=== PATIENT | female | born 1970 | race Hispanic/Latino ===

== ENCOUNTER 2018-12-25 16:46 | Emergency (ER) | payer MEDICARE ==
[2018-12-25] MEDS ORDERED: ATROVENT IH ONE ×2 (17:18→17:22)
[2018-12-25] MEDS ORDERED: PROVENTIL IH ONE ×2 (17:18→17:22)
[2018-12-25] MEDS ORDERED: SOLU-Medrol IV ONE (17:27)
[2018-12-25] MEDS ORDERED: MAGNESIUM SULFATE 2GM/50ML 2 GM/50 ML BAG IV ONE ×2 (17:27→17:29)
[2018-12-25] MEDS ORDERED: SOLU-Medrol ONE (17:29)
--- NOTE | 2018-12-25 17:31 | Emergency Department Report ---
ED Asthma HPI - General Chief Complaint: Dyspnea/Respdistress Stated Complaint: MICHAEL Time Seen by Provider: 12/25/18 17:24 Source: EMS Mode of arrival: Stretcher Limitations: No Limitations - History of Present Illness Initial Comments: Patient is 48 years old female with history of asthma and diabetes. Patient presented to the ER complaining of shortness of breath and wheezing since yesterday. Patient stated that she was taking 5 mg of prednisone daily that are doctor increased To 10 mg daily now. Patient denied any chest pain, fever or chills. No nausea or vomiting. MD Complaint: "asthma attack", shortness of breath, wheezing - Related Data Allergies Allergy/AdvReac Type Severity Reaction Status Date / Time No Known Allergies Allergy Unverified 12/25/18 17:17 ED Review of Systems ROS: Stated complaint: MICHAEL Other details as noted in HPI Comment: All other systems reviewed and negative Constitutional: denies: chills, fever Respiratory: cough, shortness of breath, SOB with exertion, SOB at rest, wheezing. denies: orthopnea Cardiovascular: denies: chest pain, palpitations Gastrointestinal: denies: abdominal pain, nausea, vomiting, diarrhea, constipation, hematemesis, melena, hematochezia Musculoskeletal: denies: back pain Neurological: denies: headache, weakness ED Past Medical Hx - Past Medical History Hx Asthma: Yes Hx Dementia: Yes ED Physical Exam - General Limitations: No Limitations General appearance: alert, in no apparent distress - Head Head exam: Present: atraumatic, normocephalic, normal inspection - Eye Eye exam: Present: normal appearance, PERRL - ENT ENT exam: Present: normal exam, normal orophraynx, mucous membranes moist - Neck Neck exam: Present: normal inspection, full ROM. Absent: tenderness, meningismus, lymphadenopathy, thyromegaly - Respiratory Respiratory exam: Present: respiratory distress, wheezes, rhonchi, decreased breath sounds, prolonged expiratory. Absent: rales, stridor, accessory muscle use - Cardiovascular Cardiovascular Exam: Present: regular rate, normal rhythm, normal heart sounds - GI/Abdominal GI/Abdominal exam: Present: soft, normal bowel sounds. Absent: distended, tenderness, guarding, rebound, rigid, organomegaly, mass, bruit, pulsatile mass, hernia - Extremities Exam Extremities exam: Present: normal inspection, full ROM, normal capillary refill. Absent: tenderness, pedal edema, joint swelling, calf tenderness - Back Exam Back exam: Present: normal inspection, full ROM. Absent: CVA tenderness (R), CVA tenderness (L) - Neurological Exam Neurological exam: Present: alert, oriented X3, CN II-XII intact, normal gait, reflexes normal - Psychiatric Psychiatric exam: Present: normal mood - Skin Skin exam: Present: warm, intact, normal color ED Course Vital Signs 12/25/18 12/25/18 12/25/18 17:05 17:15 17:22 Temperature 98.4 F Pulse Rate 85 88 Respiratory 22 23 Rate Blood Pressure 129/93 132/83 Blood Pressure 129/93 [Left] O2 Sat by Pulse 94 94 95 Oximetry 12/25/18 12/25/18 12/25/18 17:24 17:30 17:38 Temperature 98.4 F Pulse Rate 87 88 Respiratory 23 22 20 Rate Blood Pressure 125/80 129/93 Blood Pressure [Left] O2 Sat by Pulse 97 94 Oximetry 12/25/18 19:10 Temperature 98.2 F Pulse Rate 104 H Respiratory 30 H Rate Blood Pressure Blood Pressure 111/65 [Left] O2 Sat by Pulse 100 Oximetry ED Medical Decision Making - Lab Data Result diagrams: 12/25/18 17:31 12/25/18 17:31 - Radiology Data Radiology results: report reviewed - Medical Decision Making Patient is 48 years old female with history of asthma and diabetes. Patient pre sented to the ER complaining of shortness of breath and wheezing since yesterday. Patient stated that she was taking 5 mg of prednisone daily that are doctor increased To 10 mg daily now. Patient denied any chest pain, fever or chills. No nausea or vomiting. Patient received albuterol, Atrovent, solu- Medrol and magnesium sulfate. Patient stated that she is feeling much better. Labs reviewed and is unremarkable. Chest x-ray is negative for acute finding. 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 Critical care attestation.: If time is entered above; I have spent that time in minutes in the direct care of this critically ill patient, excluding procedure time. ED Disposition Clinical Impression: Asthma exacerbation Disposition: DC-01 TO HOME OR SELFCARE Is pt being admited?: No Condition: Stable Instructions: Asthma (ED) Referrals: JUAN MARTIN MD [Primary Care Provider] - 3-5 Days
[2018-12-25 17:55] LABS: Basophils % (Auto) 0.5 % (0.0-1.8); Eosinophils # (Auto) 0.2 K/mm3 (0.0-0.4); Eosinophils % (Auto) 2.1 % (0.0-4.3); Hematocrit 36.9 % (30.3-42.9); Hemoglobin 12.5 gm/dl (10.1-14.3); Lymphocytes # (Auto) 1.1 K/mm3 (1.2-5.4); Lymphocytes % (Auto) 15.2 % (13.4-35.0); Mean Corpuscular HGB Conc 34 % (30-34); Mean Corpuscular Volume 92 fl (79-97); Monocytes # (Auto) 0.5 K/mm3 (0.0-0.8); Monocytes % (Auto) 6.4 % (0.0-7.3); Platelet Count 320 K/mm3 (140-440); Red Blood Count 3.99 M/mm3 (3.65-5.03); Red Cell Distribution Width 13.5 % (13.2-15.2)
[2018-12-25 18:14] LABS: Alanine Aminotransferase 12 units/L (7-56); BUN/Creatinine Ratio 17; Blood Urea Nitrogen 10 mg/dL (7-17); Calcium 8.9 mg/dL (8.4-10.2); Hemolysis Index 26
--- NOTE | 2018-12-25 18:24 | XRay Report ---
CHEST 1 VIEW INDICATION / CLINICAL INFORMATION: Dyspnea COMPARISON: None available. FINDINGS: SUPPORT DEVICES: None. HEART / MEDIASTINUM: No significant abnormality. LUNGS / PLEURA: Small to moderate right pleural effusion. The lungs are clear. Signer Name: Juaquin Maria MD Signed: 12/25/2018 6:20 PM Workstation Name: [id number]
[2018-12-25 20:34] VITALS: BP 111/68
== END 2018-12-25 20:33 | disposition home or self-care (01) ==
LOC: ED 16:46
DX: J45.901 Unspecified asthma with (acute) exacerbation (principal)
CPT/HCPCS: 36415; 71045; 80053; 85025; 96365; 96375; 99284; J2930; J3475

== ENCOUNTER 2021-11-18 23:02 | Inpatient (IN) | payer MEDICARE ==
[~2021-11-18 23:02] MED LIST: ALBUTEROL 2.5 MG/3 ML NEBU IH ONE; IPRATROPIUM 0.02% NEBU 2.5 ML IH ONE
[2021-11-18] MEDS ORDERED: ALBUTEROL 2.5 MG/3 ML NEBU IH ONE ×2 (23:05→23:18)
[2021-11-18] MEDS ORDERED: IPRATROPIUM 0.02% NEBU 2.5 ML IH ONE ×2 (23:05→23:18)
[2021-11-18] MEDS ORDERED: MAGNESIUM SULFATE 2 GM/50 ML BAG IV ONE ×2 (23:14→23:18)
--- NOTE | 2021-11-18 23:24 | Emergency Department Report ---
ED Shortness of Breath HPI - General Chief Complaint: Dyspnea/Respdistress Stated Complaint: MICHAEL Time Seen by Provider: 11/18/21 23:02 Source: patient, EMS Mode of arrival: Stretcher Limitations: No Limitations - History of Present Illness Initial Comments: Patient is a 51-year-old female who presents emergency room with complaints of shortness of breath, difficulty breathing and chest pain x2 hours. Patient brought in by EMS. Patient's room air oxygen saturation 85%. Patient placed on CPAP by EMS. Patient having increased work to breathe. Patient complaining of chest pain that is worse with deep breath. Patient states her shortness of breath and chest pain are better with rest and worse with exertion and movement and deep breathing. Patient has been intubated 7 times in the past. Patient has a history of asthma. Patient denies recent travel. Patient denies recent international travel. Patient denies exposure to the novel coronavirus. Patient denies sick contacts. Patient denies fever and chills. Patient denies diarrhea. Patient denies coming in contact with anybody with symptoms of the novel coronavirus. MD Complaint: shortness of breath, cough, chest pain -: Sudden Severity: severe Consistency: constant Improves With: rest, bronchodilators, upright position Worsens With: exertion Known History Of: asthma, other (Intubated 7 times) Associated Symptoms: chest pain, pain with inspiration, cough - Related Data Previous Rx's Medication Instructions Recorded Last Taken Type levoFLOXacin [Levaquin TAB] 500 mg PO QDAY #7 tablet 12/25/18 Unknown Rx Allergies Allergy/AdvReac Type Severity Reaction Status Date / Time No Known Allergies Allergy Unverified 12/25/18 17:17 ED Review of Systems ROS: Stated complaint: MICHAEL Other details as noted in HPI Constitutional: denies: chills, fever Eyes: denies: eye pain, eye discharge, vision change ENT: denies: ear pain, throat pain Respiratory: see HPI, cough, shortness of breath, SOB with exertion, SOB at rest, wheezing Cardiovascular: as per HPI, chest pain. denies: palpitations Endocrine: no symptoms reported Gastrointestinal: denies: abdominal pain, nausea, diarrhea Genitourinary: denies: urgency, dysuria, discharge Musculoskeletal: denies: back pain, joint swelling, arthralgia Skin: denies: rash, lesions Neurological: denies: headache, weakness, paresthesias Psychiatric: denies: anxiety, depression Hematological/Lymphatic: denies: easy bleeding, easy bruising ED Past Medical Hx - Past Medical History Previous Medical History?: Yes Hx Diabetes: Yes Hx GERD: Yes Hx Asthma: Yes Hx Dementia: Yes Additional medical history: Intubated X 7. PE/DVT. Restless Leg. IBS. MVP - Surgical History Past Surgical History?: No - Social History Smoking Status: Never Smoker Substance Use Type: None - Medications Home Medications: Home Medications Medication Instructions Recorded Confirmed Last Taken Type levoFLOXacin [Levaquin TAB] 500 mg PO QDAY #7 tablet 12/25/18 Unknown Rx ED Physical Exam - General Limitations: No Limitations General appearance: alert, in distress - Head Head exam: Present: atraumatic, normocephalic - Eye Eye exam: Present: normal appearance - ENT ENT exam: Present: mucous membranes dry - Neck Neck exam: Present: normal inspection - Respiratory Respiratory exam: Present: respiratory distress, wheezes, rhonchi, accessory muscle use, decreased breath sounds - Cardiovascular Cardiovascular Exam: Present: regular rate, normal rhythm. Absent: systolic murmur, diastolic murmur, rubs, gallop - GI/Abdominal GI/Abdominal exam: Present: soft, normal bowel sounds - Extremities Exam Extremities exam: Present: normal inspection - Back Exam Back exam: Present: normal inspection - Neurological Exam Neurological exam: Present: alert, oriented X3 - Psychiatric Psychiatric exam: Present: normal affect, normal mood - Skin Skin exam: Present: warm, dry, intact, normal color. Absent: rash ED Course Vital Signs 11/18/21 11/18/21 11/18/21 23:02 23:03 23:15 Temperature 97.2 F L Pulse Rate 88 90 93 H Pulse Rate [ Bilateral Throughout] Respiratory 32 H 24 19 Rate Respiratory Rate [Bilateral Throughout] Blood Pressure 186/111 151/100 Blood Pressure [Left] O2 Sat by Pulse 100 100 99 Oximetry 11/18/21 11/18/21 11/18/21 23:17 23:31 23:53 Temperature 98.7 F Pulse Rate 92 H 86 Pulse Rate [ 88 Bilateral Throughout] Respiratory 21 21 Rate Respiratory 32 H Rate [Bilateral Throughout] Blood Pressure 186/111 Blood Pressure 186/111 [Left] O2 Sat by Pulse 100 100 Oximetry - Reevaluation(s) Reevaluation #1: Initial evaluation done. Patient placed on BiPAP. Patient having increased work to breathe. Patient oxygen saturation on BiPAP 100%. Patient given Solu- Medrol and albuterol by EMS. Patient will be given magnesium 2 g here. 11/18/21 23:02 Reevaluation #2: Patient is on BiPAP and her work to breathe is improving. Patient on an hour-long albuterol. Patient has received magnesium. 11/18/21 23:32 Reevaluation #3: I discussed all results with patient. I discussed plan of care with patient. Patient agrees with plan of care and admission. Patient to be admitted to the hospitalist service. 11/19/21 00:33 - Consultations Consultation #1: Hospitalist consulted for admission. Hospitalist to admit patient. 11/19/21 00:33 - EJ/Peripheral Line Arm R Time Out Performed: Yes Indications: nurses unable to establis, multiple IV sites needed Skin Cleansed in Sterile Fashion: Yes Size: 18 Dressing Placed: Tegaderm, tape Patient Tolerated Procedure: well, no complications Additional Comments: Ultrasound-guided right upper arm IV placed. IV flushes well and has a good blood return. ED Medical Decision Making - Lab Data Result diagrams: 11/18/21 23:29 11/18/21 23:29 - EKG Data -: EKG Interpreted by Me EKG shows normal: sinus rhythm, axis, intervals, QRS complexes, ST-T waves Rate: tachycardia - Radiology Data Radiology results: report reviewed, image reviewed XR chest 1V ap INDICATION / CLINICAL INFORMATION: Dyspnea. COMPARISON: 12/25/2018 FINDINGS: SUPPORT DEVICES: None. HEART /PULMONARY VASCULATURE: No significant abnormality. LUNGS / PLEURA: Lung volumes are diminished. No focal airspace consolidation. No sizable pleural effusion. No pneumothorax. ADDITIONAL FINDINGS: No significant additional findings. IMPRESSION: Diminished lung volumes. No evidence of acute chest process. - Medical Decision Making Patient is a 51-year-old female who presents emergency room with complaints of chest pain and shortness of breath. Patient's chest pain appears to be musculoskeletal. Patient's chest pain is reproducible on exam. Patient severely short of breath upon arrival. Patient brought in by EMS. EMS gave the patient albuterol and Solu-Medrol in route. Patient was also placed on CPAP by EMS. Patient is found to be hypoxic by EMS at 80% on room air. Patient during this evaluation placed on BiPAP and the patient's work to breathe slowly improved. Patient also given an hour-long albuterol treatment with ipratropium. Patient had a chest x-ray which was negative for acute findings. Patient had labs done which were essentially unremarkable except for elevated D-dimer. Due to the patient history of PE and elevated D-dimer, a patient had a CTA of the chest. Patient CTA of the chest will be followed by the hospitalist service. Patient admitted to the hospital service for further evaluation treatment. Critical care time documented due to the multiple reassessments, prolonged time at the bedside, interpretation of diagnostics and labs. - Differential Diagnosis Asthma exacerbation, respiratory failure, PE, chest pain, SOB Critical Care Time: Yes Critical care time in (mins) excluding proc time.: 35 Critical care attestation.: If time is entered above; I have spent that time in minutes in the direct care of this critically ill patient, excluding procedure time. Critical Care Time: 35 minutes ED Disposition Clinical Impression: Shortness of breath, Elevated d-dimer Respiratory failure Qualifiers: Chronicity: acute Respiratory failure complication: hypoxia Qualified Code(s): J96.01 - Acute respiratory failure with hypoxia Status asthmaticus Qualifiers: Asthma severity: severe Asthma persistence: persistent Qualified Code(s): J45.52 - Severe persistent asthma with status asthmaticus Chest pain Qualifiers: Chest pain type: unspecified Qualified Code(s): R07.9 - Chest pain, unspecified Disposition: ADMITTED INPATIENT Is pt being admited?: Yes Does the pt Need Aspirin: No Condition: Critical Time of Disposition: 00:37
[2021-11-18 23:49] LABS: Basophils % (Auto) 0.6 % (0.0-1.8); Eosinophils # (Auto) 0.2 K/mm3 (0.0-0.4); Eosinophils % (Auto) 2.3 % (0.0-4.3); Hematocrit 35.6 % (30.3-42.9); Hemoglobin 12.1 gm/dl (10.1-14.3); Lymphocytes # (Auto) 1.9 K/mm3 (1.2-5.4); Lymphocytes % (Auto) 25.2 % (13.4-35.0); Mean Corpuscular HGB Conc 34 % (30-34); Mean Corpuscular Volume 96 fl (79-97); Monocytes % (Auto) 13.3 % (0.0-7.3); Platelet Count 340 K/mm3 (140-440); Red Cell Distribution Width 14.7 % (13.2-15.2)
--- NOTE | 2021-11-19 00:02 | XRay Report ---
XR chest 1V ap INDICATION / CLINICAL INFORMATION: Dyspnea. COMPARISON: 12/25/2018 FINDINGS: SUPPORT DEVICES: None. HEART /PULMONARY VASCULATURE: No significant abnormality. LUNGS / PLEURA: Lung volumes are diminished. No focal airspace consolidation. No sizable pleural effu yossi. No pneumothorax. ADDITIONAL FINDINGS: No significant additional findings. IMPRESSION: Diminished lung volumes. No evidence of acute chest process. Signer Name: Kit Hernandez MD Signed: 11/18/2021 11:57 PM Workstation Name: [id number]
[2021-11-19 00:03] LABS: Alanine Aminotransferase 11 units/L (7-56); Albumin 4.3 g/dL (3.9-5); Blood Urea Nitrogen 14 mg/dL (7-17); Calcium 9.6 mg/dL (8.4-10.2); Hemolysis Index 5
[2021-11-19 00:07] LABS: BUN/Creatinine Ratio 23
[2021-11-19] MEDS ORDERED: MORPHINE 4 MG/1 ML INJ IV PRN (01:05)
[2021-11-19] MEDS ORDERED: MORPHINE 2 MG/1 ML INJ IV PRN (01:05)
[2021-11-19] MEDS ORDERED: DEXTROSE 50% IN WATER (25GM) 50 ML SYRINGE IV PRN ×2 (01:05→10:53)
[2021-11-19] MEDS ORDERED: ONDANSETRON 4 MG/2 ML INJ IV PRN (01:05)
[2021-11-19] MEDS ORDERED: MAGNESIUM HYDROXIDE (MOM) ORAL LIQD UDC PO PRN (01:05)
[2021-11-19] MEDS ORDERED: ACETAMINOPHEN 325 MG TAB PO PRN (01:05)
--- NOTE | 2021-11-19 01:16 | History and Physical Report ---
History of Present Illness Date of examination: 11/19/21 Date of admission: 11/19/2021 Chief complaint: Shortness of Breath History of present illness: 51-year-old -[place] male with known history of asthma who had been intubated about 7 times in the past presents to the emergency room today via EMS complaining of shortness of breath. Patient also indicates that she has been having some chest pain. Oxygen saturation initially was 85% on room air and pat ient was subsequently placed back on CPAP by EMS. Upon arrival in the emergency room, patient continued to have increased work of breathing and was having some audible wheezing. She was subsequently placed on BiPAP and also given some nebulizer treatment with significant improvement. Patient denies any fever or chills, no nausea vomiting, no abdominal pain. Denies any headache or dizziness and no diaphoresis. Denies any sick contacts and no recent travel. Denies any contact with anyone with COVID-19. Work-up in the emergency room today, chest x-ray and CT angiogram of the chest were unremarkable. Labs were also unremarkable. Patient admitted with asthma exacerbation with accompanying hypoxia. She is currently on BiPAP. Past History Past Medical History: diabetes, GERD, other (Intubated X 7. PE/DVT. Restless Leg. IBS. MVP,Asthma) Past Surgical History: No surgical history Social history: no significant social history Family history: no significant family history Medications and Allergies Allergies Allergy/AdvReac Type Severity Reaction Status Date / Time No Known Allergies Allergy Unverified 12/25/18 17:17 Home Medications Medication Instructions Recorded Confirmed Last Taken Type levoFLOXacin [Levaquin TAB] 500 mg PO QDAY #7 tablet 12/25/18 Unknown Rx Active Meds: Active Medications Acetaminophen (Acetaminophen 325 Mg Tab) 650 mg PO Q6H PRN PRN Reason: Pain MILD(1-3)/Fever >100.5/SIMON Albuterol/Ipratropium (Ipratropium/Albuterol Sulfate 3 Ml Ampul.Neb) 1 ampul IH Q6HRT CAPRICE Dextrose (Dextrose 50% In Water (25gm) 50 Ml Syringe) 50 ml IV Q30MIN PRN; Protocol PRN Reason: Hypoglycemia Heparin Sodium (Porcine) (Heparin 5,000 Unit/1 Ml Vial) 5,000 unit SUB-Q Q8HR CAPRICE Insulin Human Lispro (Insulin Lispro 100 Unit/Ml) 0 unit SUB-Q ACHS CAPRICE; Protocol Magnesium Hydroxide (Magnesium Hydroxide (Mom) Oral Liqd Udc) 30 ml PO Q4H PRN PRN Reason: Constipation Methylprednisolone Sodium Succinate (Methylprednisolone Sod Succinate 40 Mg/1 Ml Inj) 40 mg IV Q8HR CAPRICE Morphine Sulfate (Morphine 2 Mg/1 Ml Inj) 2 mg IV Q4H PRN PRN Reason: Pain, Moderate (4-6) Morphine Sulfate (Morphine 4 Mg/1 Ml Inj) 4 mg IV Q4H PRN PRN Reason: Pain , Severe (7-10) Ondansetron HCl (Ondansetron 4 Mg/2 Ml Inj) 4 mg IV Q8H PRN PRN Reason: Nausea And Vomiting Sodium Chloride (Sodium Chloride 0.9% 10 Ml Flush Syringe) 10 ml IV BID CAPRICE Sodium Chloride (Sodium Chloride 0.9% 10 Ml Flush Syringe) 10 ml IV PRN PRN PRN Reason: LINE FLUSH Review of Systems Constitutional: no fever, no chills Ears, nose, mouth and throat: no nasal congestion, no sore throat Cardiovascular: chest pain, no palpitations Respiratory: shortness of breath, wheezing, no cough Gastrointestinal: no abdominal pain, no nausea, no vomiting, no diarrhea Genitourinary Female: no pelvic pain, no flank pain, no dysuria Musculoskeletal: no neck pain, no low back pain Integumentary: no rash, no pruritis Neurological: no headaches, no change in speech Psychiatric: no anxiety, no depression Exam - Constitutional Vitals: Temp Pulse Resp BP Pulse Ox 98.7 F 85 19 133/83 99 11/18/21 23:17 11/19/21 00:45 11/19/21 00:45 11/19/21 00:45 11/19/21 00:45 General appearance: Present: mild distress, well-nourished - EENT Eyes: Present: PERRL, EOM intact. Absent: scleral icterus, conjunctival injection ENT: hearing intact, clear oral mucosa, dentition normal - Neck Neck: Present: supple, normal ROM - Respiratory Respiratory effort: labored Respiratory: bilateral: wheezing - Cardiovascular Rhythm: regular Heart Sounds: Present: S1 & S2. Absent: gallop, systolic murmur, diastolic murmur, rub, click - Extremities Extremities: no ischemia, pulses intact, pulses symmetrical, No edema, normal temperature, normal color, Full ROM Peripheral Pulses: within normal limits - Abdominal General gastrointestinal: Present: soft, non-tender, non-distended, normal bowel sounds. Absent: mass - Integumentary Integumentary: Present: clear, warm, dry, normal turgor. Absent: rash - Musculoskeletal Musculoskeletal: strength equal bilaterally - Psychiatric Psychiatric: appropriate mood/affect, intact judgment & insight, memory intact, cooperative - Neurologic Neurologic: CNII-XII intact, no focal deficits, moves all extremities HEART Score - HEART Score Troponin: Troponin T < 0.010 ng/mL (0.00-0.029) 11/18/21 23:29 Results - Labs CBC & Chem 7: 11/18/21 23:29 11/18/21 23:29 Labs: Abnormal lab results 11/18/21 11/18/21 11/18/21 Range/Units 23:29 23:29 23:29 MCH 33 H (28-32) pg [place] % (Auto) 13.3 H (0.0-7.3) % [place] # (Auto) 1.0 H (0.0-0.8) K/mm3 D-Dimer 563.08 H (0-234) ng/mlDDU Sodium 135 L (137-145) mmol/L Carbon Dioxide 21 L (22-30) mmol/L Glucose 118 H (65-100) mg/dL Assessment and Plan Assessment: 1. Respiratory failure 2. Status asthmaticus 3. Hypoxia-possibly secondary to the asthma exacerbation. 4. History of PE/DVT 5. History of diabetes mellitus. Plan: 1 . Patient admitted and placed on BiPAP. We will keep O2 saturation greater equal to 92%. 2. Patient started on nebulizing treatments and steroids 3. We will resume routine home medications. 4. Patient placed on sliding scale. We will monitor Accu-Cheks closely. DVT Prophylaxis: Code Status : Full code.
--- NOTE | 2021-11-19 01:17 | Cat Scan Report ---
CT angio chest INDICATION / CLINICAL INFORMATION: sob. TECHNIQUE: Axial CT images were obtained through the chest after injection of 100 cc of Omni 350 IV c ontrast. 3 plane MIP and/or 3D reconstructions were produced. All CT scans at this location are perfo rmed using CT dose reduction for ALARA by means of automated exposure control. COMPARISON: None available. FINDINGS: PULMONARY ARTERIES: No central or segmental pulmonary embolus. THORACIC AORTA: No significant abnormality. HEART: 4.3 cm pericardial cyst. Heart is not enlarged. CORONARY ARTERY CALCIFICATION: No significant calcification. LYMPHADENOPATHY: No significant thoracic lymphadenopathy. LUNGS/PLEURA: There is parenchymal scarring of the right lung base. No acute interstitial or airspace disease. No pleural effusion or pneumothorax. OTHER FINDINGS: None. UPPER ABDOMEN: No acute findings. Cholecystectomy SKELETAL SYSTEM: No acute osseous findings. IMPRESSION: 1. No evidence of pulmonary embolism. 2. Right basilar parenchymal scarring. No acute airspace disease. Signer Name: Kit Hernandez MD Signed: 11/19/2021 1:12 AM Workstation Name: [id number]
[2021-11-19] MEDS: IPRATROPIUM/ALBUTEROL SULFATE 3 ML AMPUL.NEB IH SCH ×4 (04:56→21:10)
[2021-11-19] MEDS: HEPARIN 5,000 UNIT/1 ML VIAL SUB-Q SCH ×2 (05:09→18:00)
[2021-11-19] MEDS: methylPREDNISolone Sod Succinate 40 MG/1 ML INJ IV SCH ×3 (05:09→23:30)
--- NOTE | 2021-11-19 07:14 | Consultation ---
History of Present Illness Consult date: 11/19/21 Reason for consult: dyspnea, asthma, hypoxemia, pulmonary embolism, DVT History of present illness: 51-year-old -[place] male with known history of asthma who had been intubated about 7 times in the past presents to the emergency room via EMS complaining of shortness of breath. Patient also indicates that she has been having some chest pain. Oxygen saturation initially was 85% on room air and patient was subsequently placed on CPAP by EMS. Upon arrival in the emergency room, patient continued to have increased work of breathing and was having some audible wheezing. She was subsequently placed on BiPAP and also given some nebulizer treatment with significant improvement. Patient denies any fever or chills, no nausea vomiting, no abdominal pain. Denies any headache or dizziness and no diaphoresis. Denies any sick contacts and no recent travel. Denies any contact with anyone with COVID-19. Patient has history of diabetes, GERD, Mitral valve prolapse,rest less leg syndrome,PE/DVT and IBS. Patient has no history of smoking, alcohol or drug abuse. Work-up in the emergency room , Patients D dimer elevated. Patients chest x-ray and CT angiogram of the chest were unremarkable. Labs were also unremarkable. Patient admitted with asthma exacerbation with accompanying hypoxia. Patient is placed on BiPAP. Patient awake and resting on 2 litres O2. O2 saturation 98%. Still complaing chest tightness. Not much wheezing to day. BIPAP 16/6, rate 20, FIO2 40% stand by in the room. Patient afebrile. No leukocytosis. Blood pressure 118/81 , Pulse 85 , respirations 14. Patient presently on I/V solumedrol, Albuterol/atrovent aerosol treatments, Zithromax, Famotidine, Apixaban. Past History Past Medical History: diabetes, GERD, other (Intubated X 7. PE/DVT. Restless Leg. IBS. MVP,Asthma) Past Surgical History: No surgical history Social history: no significant social history Family history: no significant family history Medications and Allergies Allergies Allergy/AdvReac Type Severity Reaction Status Date / Time No Known Allergies Allergy Unverified 12/25/18 17:17 Home Medications Medication Instructions Recorded Confirmed Last Taken Type Cyclobenzaprine 10 mg PRN PRN 11/19/21 11/19/21 Unknown History Duloxetine HCl 25 mg PO BID 11/19/21 11/19/21 11/18/21 History Eliquis 5 mg PO BID 11/19/21 11/19/21 11/18/21 History Levocetirizine Dihydrochloride 5 mg PO Q24HR 11/19/21 11/19/21 Unknown History [Xyzal] Linzess 290 mg PO PRN PRN 11/19/21 11/19/21 Unknown History Omeprazole 40 mg PO QDAY 11/19/21 11/19/21 11/18/21 History Pregabalin [Lyrica] 25 mg PO BID 11/19/21 11/19/21 11/18/21 History Active Meds: Active Medications Acetaminophen (Acetaminophen 325 Mg Tab) 650 mg PO Q6H PRN PRN Reason: Pain MILD(1-3)/Fever >100.5/SIMON Albuterol/Ipratropium (Ipratropium/Albuterol Sulfate 3 Ml Ampul.Neb) 1 ampul IH Q6HRT [facility] Last Admin: 11/19/21 04:56 Dose: 1 ampul Dextrose (Dextrose 50% In Water (25gm) 50 Ml Syringe) 0 ml IV Q30MIN PRN; Protocol PRN Reason: Hypoglycemia Heparin Sodium (Porcine) (Heparin 5,000 Unit/1 Ml Vial) 5,000 unit SUB-Q Q8HR CAPRICE Last Admin: 11/19/21 05:09 Dose: 5,000 unit Insulin Human Lispro (Insulin Lispro 100 Unit/Ml) 0 unit SUB-Q ACHS CAPRICE; Protocol Magnesium Hydroxide (Magnesium Hydroxide (Mom) Oral Liqd Udc) 30 ml PO Q4H PRN PRN Reason: Constipation Methylprednisolone Sodium Succinate (Methylprednisolone Sod Succinate 40 Mg/1 Ml Inj) 40 mg IV Q8HR CAPRICE Last Admin: 11/19/21 05:09 Dose: 40 mg Morphine Sulfate (Morphine 2 Mg/1 Ml Inj) 2 mg IV Q4H PRN PRN Reason: Pain, Moderate (4-6) Last Admin: 11/19/21 02:23 Dose: 2 mg Morphine Sulfate (Morphine 4 Mg/1 Ml Inj) 4 mg IV Q4H PRN PRN Reason: Pain , Severe (7-10) Ondansetron HCl (Ondansetron 4 Mg/2 Ml Inj) 4 mg IV Q8H PRN PRN Reason: Nausea And Vomiting Sodium Chloride (Sodium Chloride 0.9% 10 Ml Flush Syringe) 10 ml IV BID CAPRICE Sodium Chloride (Sodium Chloride 0.9% 10 Ml Flush Syringe) 10 ml IV PRN PRN PRN Reason: LINE FLUSH Review of Systems All systems: negative Physical Examination Vital signs: Vital Signs Pulse Resp BP Pulse Ox 88 32 H 186/111 100 11/18/21 23:02 11/18/21 23:02 11/18/21 23:02 11/18/21 23:02 General appearance: no acute distress, alert Eyes: non-icteric ENT: oropharynx moist Neck: supple, no JVD Effort: mildly labored Ascultation: Bilateral: wheezes (Occasional wheezing.) Cardiovascular: regular rate and rhythm Gastrointestinal: normoactive bowel sounds, soft, non-tender Integumentary: normal Extremities: no cyanosis, no edema Musculoskeletal: no deformities Gait: other (Resting in bed at this time.) normal mental status, non-focal exam, pupils equal and round, CN II-XII normal mood appropriate, anxious Results - Laboratory Findings CBC and BMP: 11/18/21 23:29 11/18/21 23:29 PT/INR, D-dimer D-Dimer 563.08 ng/mlDDU (0-234) H 11/18/21 23:29 Abnormal lab findings: Abnormal Labs 11/18/21 11/18/21 11/18/21 23:29 23:29 23:29 MCH 33 H Branch % (Auto) 13.3 H Branch # (Auto) 1.0 H D-Dimer 563.08 H Sodium 135 L Carbon Dioxide 21 L Glucose 118 H - Diagnostic Findings Chest x-ray: report reviewed, image reviewed Additional studies: XR chest 1V ap 11/18/21 INDICATION / CLINICAL INFORMATION: Dyspnea. COMPARISON: 12/25/2018 FINDINGS: SUPPORT DEVICES: None. HEART /PULMONARY VASCULATURE: No significant abnormality. LUNGS / PLEURA: Lung volumes are diminished. No focal airspace consolidation. No sizable pleural effusion. No pneumothorax. ADDITIONAL FINDINGS: No significant additional findings. IMPRESSION: Diminished lung volumes. No evidence of acute chest process. CT angio chest 11/18/21 INDICATION / CLINICAL INFORMATION: sob. TECHNIQUE: Axial CT images were obtained through the chest after injection of 100 cc of Omni 350 IV contrast. 3 plane MIP and/or 3D reconstructions were produced. All CT scans at this location are performed using CT dose reduction for ALARA by means of automated exposure control. COMPARISON: None available. FINDINGS: PULMONARY ARTERIES: No central or segmental pulmonary embolus. THORACIC AORTA: No significant abnormality. HEART: 4.3 cm pericardial cyst. Heart is not enlarged. CORONARY ARTERY CALCIFICATION: No significant calcification. LYMPHADENOPATHY: No significant thoracic lymphadenopathy. LUNGS/PLEURA: There is parenchymal scarring of the right lung base. No acute interstitial or airspace disease. No pleural effusion or pneumothorax. OTHER FINDINGS: None. UPPER ABDOMEN: No acute findings. Cholecystectomy SKELETAL SYSTEM: No acute osseous findings. IMPRESSION: 1. No evidence of pulmonary embolism. 2. Right basilar parenchymal scarring. No acute airspace disease. Assessment and Plan 51-year-old -[place] male with known history of asthma who had been intubated about 7 times in the past presents to the emergency room via EMS complaining of shortness of breath. Patient also indicates that she has been having some chest pain. Oxygen saturation initially was 85% on room air and patient was subsequently placed on CPAP by EMS. Upon arrival in the emergency room, patient continued to have increased work of breathing and was having some audible wheezing. She was subsequently placed on BiPAP and also given some nebulizer treatment with significant improvement. Patient denies any fever or chills, no nausea vomiting, no abdominal pain. Denies any headache or dizziness and no diaphoresis. Denies any sick contacts and no recent travel. Denies any contact with anyone with COVID-19. Patient has history of diabetes, GERD, Mitral valve prolapse,rest less leg syndrome,PE/DVT and IBS. Patient has no history of smoking, alcohol or drug abuse. Work-up in the emergency room , Patients D dimer elevated. Patients chest x-ray and CT angiogram of the chest were unremarkable. Labs were also unremarkable. Patient admitted with asthma exacerbation with accompanying hypoxia. Patient is placed on BiPAP. Patient awake and resting on 2 litres O2. O2 saturation 98%. Still complaing chest tightness. Not much wheezing to day. BIPAP 16/6, rate 20, FIO2 40% stand by in the room. Patient afebrile. No leukocytosis. Blood pressure 118/81 , Pulse 85 , respirations 14. Patient presently on I/V solumedrol, Albuterol/atrovent aerosol treatments, Zithromax, Famotidine, Apixaban. I spent critical care time of 45 minutes, obtaining history, review the chart, examine the patient, Review imaging and labs, talk to the nursing staff and respiratory therapy and work up plan of treatment in patient with acute exacer bation of asthma with hypoxic respiratory failure. - Patient Problems (1) Acute severe exacerbation of asthma Current Visit: Yes Status: Acute Plan to address problem: O2 2 litres via nasal canula. BIPAP 16/6, rate 20, FIO2 40% stand by in the room. Albuterol/atrovent aerosol treatment q 6 hours. Continue I/V solumedrol Patient is on Eliquis. Continue Pepcid. Continue zithromax. (2) Acute respiratory failure with hypoxia Current Visit: Yes Status: Acute Plan to address problem: O2 2 litres via nasal canula. BIPAP 16/6, rate 20, FIO2 40% stand by in the room. Albuterol/atrovent aerosol treatment q 6 hours. Continue I/V solumedrol Patient is on Eliquis. Continue Pepcid. Continue zithromax. Recommend ABGs on room air. (3) Chest pain Current Visit: Yes Status: Acute Qualifiers: Chest pain type: unspecified Qualified Code(s): R07.9 - Chest pain, un specified Plan to address problem: Recommend cardiology consultation. (4) Elevated d-dimer Current Visit: Yes Status: Acute Plan to address problem: Patient Angio CT of chest reported negative for PE. Patient is on Eliquis for history of DVT/PE.
[2021-11-19] MEDS: INSULIN LISPRO 100 UNIT/ML SUB-Q SCH ×4 (08:29→22:35)
[2021-11-19] MEDS: FAMOTIDINE 20 MG TAB PO SCH (09:48)
--- NOTE | 2021-11-19 10:52 | Progress Note ---
<MADHAVI DARBY - Last Filed: 11/19/21 19:12> Assessment and Plan Assessment and plan: This is a 51-year-old female with known past medical history of asthma s/p multiple intubations in the past, DM, PE/DVT on Eliquis at home, Neuropathy, and depression admitted for acute hypoxic respiratory failure 2/2 status asthmaticus Hospital Course to Date: 11/19: Respiratory status improved, now stable on 2L NC. Patient is still complaining of chest tightness, still coughing thick yellow sputum. Troponin negative X2, ECG with no significant ST changes, probably related to acute exacerbation and cough. PO azithro initiated X5days, continue IV steroids and nebs treatment. PRN analgesia for pain control. Hyperglycemia most likely due to IV steroids. Continue BG check ACHS, SSI adjusted and qhs lantus added. Patient is stable for transfer to Telemetry. Assessment and Plan #Acute Hypoxic Respiratory Failure 2/2 #Status Asthmaticus - Presented with SOB, chest tightness, and hypoxia required continuous Bipap - Chest x-ray and CT angiogram of the chest were unremarkable. - Respiratory status improved this am, down to 2L NC this am SPO2 above 95% - Still c/o chest tightness and coughing tight yellow sputum - Troponin is negative X2, ECG with no significant ST changes - PO Azithromax initiated X5days - Continue IV steroids and nebs treatment - Continue O2 supplementation and wean as tolerated - Continue SPO2 monitoring for SPO2 goal above 92% - PRN analgesia for pain control - Bipap qHs - Pulmonary consulted #Type 2 Diabetes Mellitus with Hyperglycemia - Per patient, DM control currently not on any antidiabetic regimen - Hyperglycemia most likely due to IV steroids - Continue BG ACHS, SSI adjuted and qhs Lantus added - Avoid hypoglycemia - While critically ill target blood glucose of 140-180 #History of PE/DVT - Resume home Eliquis #Neuropathy - Continue supportive care - Home Lyrica resumed #GI/DVT Prophylaxis - PPI- Pepcid - PO Eliquis - SCDs to bilateral lower extremities while in bed The high probability of a clinically significant, sudden or life threatening deterioration of the [multiple] system(s) required my full and direct attention, intervention and personal management. The aggregate critical care time was [60] minutes. This time is in addition to time spent performing reported procedures but includes the following: [x] Data Review and interpretation [x] Patient assessment and monitoring of vital signs [x] Documentation [x] Medication orders and management Disposition Plan: Transfer to the Floor Total Time Spent with Patient (Minutes): 60 History Interval history: Patient seen and examined at the bedside. Fully AAO, on 2L NC. Still complaining of constant chest tightness, but feel like her breathing is getting better. Tolerated Bipap overnight, VSS. Hospitalist Physical - Constitutional Vitals: Temp Pulse Resp BP Pulse Ox 97.8 F 80 17 120/73 98 11/19/21 08:00 11/19/21 09:00 11/19/21 09:00 11/19/21 09:00 11/19/21 09:00 General appearance: Present: no acute distress, well-nourished - EENT Eyes: Present: PERRL, EOM intact ENT: hearing intact - Neck Neck: Present: normal ROM - Respiratory Respiratory effort: normal Respiratory: bilateral: wheezing - Cardiovascular Rhythm: regular Heart Sounds: Present: S1 & S2 - Extremities Extremities: no ischemia, pulses intact, pulses symmetrical Peripheral Pulses: within normal limits - Abdominal General gastrointestinal: soft, non-distended, normal bowel sounds - Integumentary Integumentary: Present: clear, warm, dry - Psychiatric Psychiatric: appropriate mood/affect, cooperative - Neurologic Neurologic: CNII-XII intact, moves all extremities - Allied Health Allied health notes reviewed: nursing HEART Score - HEART Score Troponin: Troponin T < 0.010 ng/mL (0.00-0.029) 11/19/21 08:57 Results - Labs CBC & Chem 7: 11/18/21 23:29 11/18/21 23:29 Labs: Laboratory Last Values WBC 7.6 K/mm3 (4.5-11.0) 11/18/21 23:29 RBC 3.70 M/mm3 (3.65-5.03) 11/18/21 23:29 Hgb 12.1 gm/dl (10.1-14.3) 11/18/21 23:29 Hct 35.6 % (30.3-42.9) 11/18/21 23:29 MCV 96 fl (79-97) 11/18/21 23:29 MCH 33 pg (28-32) H 11/18/21 23:29 MCHC 34 % (30-34) 11/18/21 23: RDW 14.7 % (13.2-15.2) 11/18/21 23: Plt Count 340 K/mm3 (140-440) 11/18/21 23: Lymph % (Auto) 25.2 % (13.4-35.0) 11/18/21 23: Coke % (Auto) 13.3 % (0.0-7.3) H 11/18/21 23: Eos % (Auto) 2.3 % (0.0-4.3) 11/18/21 23: Baso % (Auto) 0.6 % (0.0-1.8) 11/18/21: Lymph # (Auto) 1.9 K/mm3 (1.2-5.4) 11/18/21 23: Coke # (Auto) 1.0 K/mm3 (0.0-0.8) H 11/18/21 23: Eos # (Auto) 0.2 K/mm3 (0.0-0.4) 11/18/21 23: Baso # (Auto) 0.0 K/mm3 (0.0-0.1) 11/18/21 23: Seg Neutrophils % 58.6 % (40.0-70.0) 11/18/21: Seg Neutrophils # 4.5 K/mm3 (1.8-7.7) 11/18/21 23: D-Dimer 563.08 ng/mlDDU (0-234) H 11/18/21 23: Sodium 135 mmol/L (137-145) L 11/18/21 23: Potassium 4.3 mmol/L (3.6-5.0) 11/18/21 23: Chloride 98.7 mmol/L (98-107) 11/18/21 23: Carbon Dioxide 21 mmol/L (22-30) L 11/18/21: Anion Gap 20 mmol/L 11/18/21 23: BUN 14 mg/dL (7-17) 11/18/21 23: Creatinine 0.6 mg/dL (0.6-1.2) 11/18/21 23: Estimated GFR > 60 ml/min 11/18/21 23:29 BUN/Creatinine Ratio 23 % 11/18/21 23:29 Glucose 118 mg/dL (65-100) H 11/18/21 23:29 POC Glucose 238 mg/dL (70-105) H 11/19/21 08:12 Calcium 9.6 mg/dL (8.4-10.2) 11/18/21 23:29 Total Bilirubin 0.20 mg/dL (0.1-1.2) 11/18/21 23:29 AST 17 units/L (5-40) 11/18/21 23:29 ALT 11 units/L (7-56) 11/18/21 23:29 Alkaline Phosphatase 73 units/L (35-129) 11/18/21 23:29 Troponin T < 0.010 ng/mL (0.00-0.029) 11/19/21 08:57 Total Protein 7.3 g/dL (6.3-8.2) 11/18/21 23:29 Albumin 4.3 g/dL (3.9-5) 11/18/21 23:29 Albumin/Globulin Ratio 1.4 % 11/18/21 23:29 Active Medications - Current Medications Current Medications: Generic Name Dose Route Start Last Admin Trade Name Freq PRN Reason Stop Dose Admin Acetaminophen 650 mg 11/19/21 01:05 Acetaminophen 325 Mg Tab PO Q6H PRN Pain MILD(1-3)/Fever >100.5/SIMON Albuterol/Ipratropium 1 ampul 11/19/21 02:00 11/19/21 08:26 Ipratropium/Albuterol Sulfate 3 Ml Ampul.Neb IH 1 ampul Q6HRT CAPRICE Administration Dextrose 0 ml 11/19/21 01:05 Dextrose 50% In Water (25gm) 50 Ml Syringe IV Q30MIN PRN Hypoglycemia Protocol Famotidine 20 mg 11/19/21 10:00 11/19/21 09:48 Famotidine 20 Mg Tab PO 20 mg QDAY CAPRICE Administration Heparin Sodium (Porcine) 5,000 unit 11/19/21 06:00 11/19/21 05:09 Heparin 5,000 Unit/1 Ml Vial SUB-Q 5,000 unit Q8HR CAPRICE Administration Insulin Human Lispro 0 unit 11/19/21 07:30 11/19/21 08:29 Insulin Lispro 100 Unit/Ml SUB-Q 3 unit ACHS CAPRICE Administration Protocol Magnesium Hydroxide 30 ml 11/19/21 01:05 Magnesium Hydroxide (Mom) Oral Liqd Udc PO Q4H PRN Constipation Methylprednisolone Sodium Succinate 40 mg 11/19/21 06:00 11/19/21 05:09 Methylprednisolone Sod Succinate 40 Mg/1 Ml Inj IV 40 mg Q8HR CAPRICE Administration Morphine Sulfate 2 mg 11/19/21 01:05 11/19/21 02:23 Morphine 2 Mg/1 Ml Inj IV 2 mg Q4H PRN Administration Pain, Moderate (4-6) Ondansetron HCl 4 mg 11/19/21 01:05 Ondansetron 4 Mg/2 Ml Inj IV Q8H PRN Nausea And Vomiting Sodium Chloride 10 ml 11/19/21 10:00 11/19/21 09:48 Sodium Chloride 0.9% 10 Ml Flush Syringe IV 10 ml BID CAPRICE Administration Sodium Chloride 10 ml 11/19/21 01:05 Sodium Chloride 0.9% 10 Ml Flush Syringe IV PRN PRN LINE FLUSH <DAYANARA REDDING - Last Filed: 11/20/21 07:13> Assessment and Plan Assessment and plan: I saw and evaluated the patient. I agree with the findings and the plan of care as documented in the Nurse Practitioner's~note, with the following corrections and additions. Hospitalist Physical - Constitutional Vitals: Temp Pulse Resp BP Pulse Ox 97.8 F 94 H 18 126/75 100 11/20/21 04:42 11/20/21 04:42 11/20/21 04:42 11/20/21 04:42 11/20/21 04:42 HEART Score - HEART Score Troponin: Troponin T < 0.010 ng/mL (0.00-0.029) 11/19/21 08:57 Results - Labs CBC & Chem 7: 11/20/21 04:30 11/20/21 04:30 Labs: Laboratory Last Values WBC 11.4 K/mm3 (4.5-11.0) H 11/20/21 04:30 RBC 3.92 M/mm3 (3.65-5.03) 11/20/21 04:30 Hgb 12.6 gm/dl (10.1-14.3) 11/20/21 04:30 Hct 38.2 % (30.3-42.9) 11/20/21 04:30 MCV 98 fl (79-97) H 11/20/21 04:30 MCH 32 pg (28-32) 11/20/21 04:30 MCHC 33 % (30-34) 11/20/21 04:30 RDW 14.9 % (13.2-15.2) 11/20/21 04:30 Plt Count 372 K/mm3 (140-440) 11/20/21 04:30 Lymph % (Auto) 25.2 % (13.4-35.0) 11/18/21 23:29 Coke % (Auto) 13.3 % (0.0-7.3) H 11/18/21 23:29 Eos % (Auto) 2.3 % (0.0-4.3) 11/18/21 23: Baso % (Auto) 0.6 % (0.0-1.8) 11/18/21 23:29 Lymph # (Auto) 1.9 K/mm3 (1.2-5.4) 11/18/21 23:29 Coke # (Auto) 1.0 K/mm3 (0.0-0.8) H 11/18/21 23:29 Eos # (Auto) 0.2 K/mm3 (0.0-0.4) 11/18/21 23:29 Baso # (Auto) 0.0 K/mm3 (0.0-0.1) 11/18/21 23:29 Seg Neutrophils % Estate Planner 11/20/21 04:30 Seg Neutrophils # 4.5 K/mm3 (1.8-7.7) 11/18/21 23:29 D-Dimer 563.08 ng/mlDDU (0-234) H 11/18/21 23:29 Sodium 136 mmol/L (137-145) L 11/20/21 04:30 Potassium 3.7 mmol/L (3.6-5.0) 11/20/21 04:30 Chloride 99.5 mmol/L (98-107) 11/20/21 04:30 Carbon Dioxide 23 mmol/L (22-30) 11/20/21 04:30 Anion Gap 17 mmol/L 11/20/21 04:30 BUN 12 mg/dL (7-17) 11/20/21 04:30 Creatinine 0.5 mg/dL (0.6-1.2) L 11/20/21 04:30 Estimated GFR > 60 ml/min 11/20/21 04:30 BUN/Creatinine Ratio 24 % 11/20/21 04:30 Glucose 193 mg/dL (65-100) H 11/20/21 04:30 POC Glucose 199 mg/dL (70-105) H 11/19/21 20:29 Hemoglobin A1c 5.5 % (4-6) 11/20/21 04:30 Calcium 9.8 mg/dL (8.4-10.2) 11/20/21 04:30 Total Bilirubin 0.20 mg/dL (0.1-1.2) 11/18/21 23:29 AST 17 units/L (5-40) 11/18/21 23:29 ALT 11 units/L (7-56) 11/18/21 23:29 Alkaline Phosphatase 73 units/L (35-129) 11/18/21 23:29 Troponin T < 0.010 ng/mL (0.00-0.029) 11/19/21 08:57 Total Protein 7.3 g/dL (6.3-8.2) 11/18/21 23:29 Albumin 4.3 g/dL (3.9-5) 11/18/21 23:29 Albumin/Globulin Ratio 1.4 % 11/18/21 23:29 Coyle/IV: Voiding Method Bedside Commode Active Medications - Current Medications Current Medications: Generic Name Dose Route Start Last Admin Trade Name Freq PRN Reason Stop Dose Admin Acetaminophen 650 mg 11/19/21 01:05 Acetaminophen 325 Mg Tab PO Q6H PRN Pain MILD(1-3)/Fever >100.5/SIMON Albuterol/Ipratropium 1 ampul 11/19/21 02:00 11/20/21 02:55 Ipratropium/Albuterol Sulfate 3 Ml Ampul.Neb IH 1 ampul Q6HRT CAPRICE Administration Apixaban 5 mg 11/19/21 22:00 11/19/21 22:30 Apixaban 5 Mg Tab PO 5 mg Q12HR CAPRICE Administration Azithromycin 250 mg 11/19/21 16:00 11/19/21 15:19 Azithromycin 250 Mg Tab PO 11/24/21 15:59 250 mg QDAY CAPRICE Administration Protocol Dextrose 50 ml 11/19/21 10:53 Dextrose 50% In Water (25gm) 50 Ml Syringe IV Q30MIN PRN Hypoglycemia Protocol Duloxetine HCl 20 mg 11/19/21 22:00 11/19/21 22:46 Duloxetine 20 Mg Cap PO 20 mg BID CAPRICE Administration Famotidine 20 mg 11/19/21 10:00 11/19/21 09:48 Famotidine 20 Mg Tab PO 20 mg QDAY CAPRICE Administration Insulin Human Lispro 0 unit 11/19/21 07:30 11/19/21 22:35 Insulin Lispro 100 Unit/Ml SUB-Q 2 unit ACHS CAPRICE Administration Protocol Magnesium Hydroxide 30 ml 11/19/21 01:05 Magnesium Hydroxide (Mom) Oral Liqd Udc PO Q4H PRN Constipation Methylprednisolone Sodium Succinate 40 mg 11/19/21 06:00 11/20/21 06:43 Methylprednisolone Sod Succinate 40 Mg/1 Ml Inj IV 40 mg Q8HR CAPRICE Administration Morphine Sulfate 2 mg 11/19/21 01:05 11/19/21 02:23 Morphine 2 Mg/1 Ml Inj IV 2 mg Q4H PRN Administration Pain, Moderate (4-6) Ondansetron HCl 4 mg 11/19/21 01:05 Ondansetron 4 Mg/2 Ml Inj IV Q8H PRN Nausea And Vomiting Pregabalin 25 mg 11/19/21 22:00 11/19/21 22:30 Pregabalin 25 Mg Cap PO 25 mg BID CAPRICE Administration Senna 17.2 mg 11/19/21 22:00 11/19/21 22:30 Sennosides 8.6 Mg Tab PO 17.2 mg QHS CAPRICE Administration Sodium Chloride 10 ml 11/19/21 10:00 11/19/21 22:35 Sodium Chloride 0.9% 10 Ml Flush Syringe IV 10 ml BID CAPRICE Administration Sodium Chloride 10 ml 11/19/21 01:05 Sodium Chloride 0.9% 10 Ml Flush Syringe IV PRN PRN LINE FLUSH Nutrition/Malnutrition Assess - Dietary Evaluation Nutrition/Malnutrition Findings: Nutrition Notes Start: 11/19/21 12:01 Freq: Status: Active Protocol: Document 11/19/21 12:01 TW (Rec: 11/19/21 12:05 TW [email or web address]) Nutrition Notes Need for Assessment generated from: MD Order,Education Initial or Follow up Brief Note Other Pertinent Diagnosis Asthma exacerbation Current Diet Cardiac/ Consistent Carb Pertinent Medications Solu-Medrol Weight Status Appropriate Subjective/Other Information RD consulted for diet education. Diet education not appropriate at this time. Pt on BiPap support. Steroid medication likely causing increased blood sugar. Minimum of two criteria No Nutrition Intervention Follow-Up By: 11/24/21 Additional Comments f/U for intakes and resp status
[2021-11-19] MEDS: AZITHROMYCIN 250 MG TAB PO SCH (15:19)
[2021-11-19] MEDS ORDERED: SENNOSIDES 8.6 MG TAB PO SCH (22:00)
[2021-11-19] MEDS ORDERED: NON-FORMULARY EACH (Eliquis 5 MG) PO SCH (22:00)
[2021-11-19] MEDS ORDERED: DULOXETINE PO SCH (22:00)
[2021-11-19] MEDS ORDERED: DULoxetine 20 MG CAP PO SCH (22:00)
[2021-11-19] MEDS: PREGABALIN 25 MG CAP PO SCH (22:30)
[2021-11-19] MEDS: APIXABAN 5 MG TAB PO SCH (22:30)
[2021-11-20] MEDS: IPRATROPIUM/ALBUTEROL SULFATE 3 ML AMPUL.NEB IH SCH ×3 (02:55→15:59)
[2021-11-20 06:20] LABS: Hematocrit 38.2 % (30.3-42.9); Hemoglobin 12.6 gm/dl (10.1-14.3); Mean Corpuscular HGB Conc 33 % (30-34); Mean Corpuscular Volume 98 fl (79-97); Platelet Count 372 K/mm3 (140-440); Red Blood Count 3.92 M/mm3 (3.65-5.03); Red Cell Distribution Width 14.9 % (13.2-15.2)
[2021-11-20 06:38] LABS: Blood Urea Nitrogen 12 mg/dL (7-17); Calcium 9.8 mg/dL (8.4-10.2); Hemolysis Index 39
[2021-11-20 06:39] VITALS: BP 126/75
[2021-11-20 06:39] LABS: BUN/Creatinine Ratio 24
[2021-11-20] MEDS: methylPREDNISolone Sod Succinate 40 MG/1 ML INJ IV SCH (06:43)
[2021-11-20] MEDS: INSULIN LISPRO 100 UNIT/ML SUB-Q SCH (08:11)
--- NOTE | 2021-11-20 09:13 | Discharge Summary ---
Providers - Providers Date of Admission: 11/19/21 01:06 Attending physician: DAYANARA REDDING MD 11/19/21 01:06 Consult to Physician [CONS] Routine Comment: Consulting Provider: BARBI JENSEN Physician Instructions: Reason For Exam: Respiratoy failure, Status Asthmaticus 11/19/21 10:53 Consult to Dietitian/Nutrition [CONS] Routine Physician Instructions: Reason For Exam: Reason for Consult: Diet education Primary care physician: JUAN MARTIN MD Hospitalization Reason for admission: shortness of breath Condition: Stable Hospital course: This is a 51-year-old female with known past medical history of asthma s/p multiple intubations in the past, DM, PE/DVT on Eliquis at home, Neuropathy, and depression admitted for acute hypoxic respiratory failure 05/18 status asthmaticus Hospital Course to Date: 11/19: Respiratory status improved, now stable on 2L NC. Patient is still compla ining of chest tightness, still coughing thick yellow sputum. Troponin negative X2, ECG with no significant ST changes, probably related to acute exacerbation and cough. PO azithro initiated X5days, continue IV steroids and nebs treatment. PRN analgesia for pain control. Hyperglycemia most likely due to IV steroids. Continue BG check ACHS, SSI adjusted and qhs lantus added. Patient is stable for transfer to Telemetry. 11/20: Patient seen and examined, while she has improved, she is still some tremor, I discussed with her daughter who informs me about her ETOH use and intermittent non compliance with medications and Doctor follow up. she also informs me that sometimes the patient will listen to her and other times not. I have provided counselling on ETOH cessation. She does not appear to be in any withdrawal at this time and no Delirium noted. Home o2 evaluation will be done prior to discharge and also will plan to get Home health in am. I have advised her to follow with her PCP and [facility] in 2-3 days. Assessment and Plan #Acute Hypoxic Respiratory Failure 05/18 #Status Asthmaticus #?Partial Lobectomy #COPD- moderate to severe - Presented with SOB, chest tightness, and hypoxia required continuous Bipap - Chest x-ray and CT angiogram of the chest were unremarkable. - Respiratory status improved this am, down to 2L NC this am SPO2 above 95% - Still c/o chest tightness and coughing tight yellow sputum - Troponin is negative X2, ECG with no significant ST changes - PO Azithromax initiated X5days - Continue IV steroids and nebs treatment - Continue O2 supplementation and wean as tolerated - Continue SPO2 monitoring for SPO2 goal above 92% - PRN analgesia for pain control - Bipap qHs - Pulmonary consulted #Type 2 Diabetes Mellitus with Hyperglycemia - Per patient, DM control currently not on any antidiabetic regimen - Hyperglycemia most likely due to IV steroids - Continue BG ACHS, SSI adjuted and qhs Lantus added - Avoid hypoglycemia - While critically ill target blood glucose of 140-180 #History of PE/DVT - Resume home Eliquis #Rhumatoid arthritis #ETOH Use disorder #Afib #Non complaince with meds per daughter #Neuropathy - Continue supportive care - Home Lyrica resumed #GI/DVT Prophylaxis - PPI- Pepcid - PO Eliquis - SCDs to bilateral lower extremities while in bed 15 mins preventive care counselling 30 mins advance directive discussion, maintains full code Disposition: HOME HEALTH CARE SERVICE Final Discharge Diagnosis (Prints w/discharge instructions): #Acute Hypoxic Respiratory Failure 2/. #Status Asthmaticus. #?Partial Lobectomy. #COPD- moderate to severe Time spent for discharge: 35 mins Core Measure Documentation - Palliative Care Palliative Care/ Comfort Measures: Not Applicable - Core Measures Any of the following diagnoses?: none Exam - Physical Exam Narrative exam: VITAL SIGNS: Reviewed. GENERAL: The patient appears normally developed, Lethargic but improved Vital signs as documented. HEAD: No signs of head trauma. EYES: Pupils are equal. Extraocular motions intact. EARS: Hearing grossly intact. MOUTH: Oropharynx is normal. NECK: No adenopathy, no JVD. CHEST: Chest with Dimished,breath sounds bilaterally. Barrel chest, No wheezes, rales, or rhonchi. CARDIAC: Regular rate and rhythm. S1 and S2, without murmurs, gallops, or rubs. VASCULAR: No Edema. Peripheral pulses normal and equal in all extremities. ABDOMEN: Soft, non tender and non distended. No rebound or guarding, and no masses palpated. Bowel Sounds normal. MUSCULOSKELETAL: limited range of motion of all major joints. Extremities without clubbing, cyanosis or edema. NEUROLOGIC EXAM: Alert and oriented x 3 No focal sensory or strength deficits. Speech normal. Follows commands. PSYCHIATRIC: Mood normal. SKIN: detail exam as documented in skin assessment - Constitutional Vitals: Temp Pulse Resp BP Pulse Ox 97.8 F 94 H 18 126/75 100 11/20/21 04:42 11/20/21 04:42 11/20/21 04:42 11/20/21 04:42 11/20/21 04:42 Plan Activity: advance as tolerated, fall precautions Diet: low fat, diabetic Special Instructions: physical therapy, occupational therapy Care Plan Goals: Must quit ETOH Must be compliant Follow up with: JUAN MARTIN MD [Primary Care Provider] - 3-5 Days JONATHON MACKENZIE MD [Staff Physician] - 7 Days Prescriptions: Fluticasone/Salmeterol [Advair Diskus 250-50 mcg] 1 puff IH BID #1 can Ipratropium/Albuterol Sulfate [DUONEB *Not for PRN Use*] 1 ampul IH Q6HRT #120 ampul.neb Famotidine [Pepcid] 20 mg PO QDAY #30 tablet Prednisone [predniSONE 10 mg (6-Day Pack, 21 Tabs)] 10 mg PO .TAPER #1 Montelukast [Singulair] 10 mg PO QPM #30 tablet Azithromycin [Zithromax TAB] 250 mg PO QDAY #5 tablet
[2021-11-20 09:16] LABS: Basophils % (Manual) 0 % (0.0-1.8); Eosinophils % (Manual) 0 % (0.0-4.3); Total Cells Counted 100
[2021-11-20 09:17] LABS: Platelet Estimate Consistent w Auto; RBC Morphology Normal
[2021-11-20] MEDS: PREGABALIN 25 MG CAP PO SCH (09:26)
[2021-11-20] MEDS: AZITHROMYCIN 250 MG TAB PO SCH (09:26)
[2021-11-20] MEDS: FAMOTIDINE 20 MG TAB PO SCH (09:26)
[2021-11-20] MEDS: APIXABAN 5 MG TAB PO SCH (09:26)
--- NOTE | 2021-11-20 11:48 | Progress Note ---
Assessment and Plan - Patient Problems (1) Acute severe exacerbation of asthma Status: Acute (2) Acute respiratory failure with hypoxia Status: Acute (3) Chest pain Status: Acute Qualifiers: Chest pain type: unspecified Qualified Code(s): R07.9 - Chest pain, unspec ified (4) Elevated d-dimer Status: Acute Subjective Date of service: 11/20/21 Interval history: Patient discharged before I saw her to day, Objective Vital Signs - 12hr 11/19/21 11/20/21 11/20/21 23:48 02:58 03:00 Temperature 97.5 F L Pulse Rate 85 Pulse Rate [ 95 H Bilateral Throughout] Respiratory 20 Rate Respiratory 16 Rate [Bilateral Throughout] Blood Pressure 109/55 O2 Sat by Pulse 94 93 Oximetry 11/20/21 11/20/21 11/20/21 04:42 11:05 11:06 Temperature 97.8 F Pulse Rate 94 H Pulse Rate [ 77 Bilateral Throughout] Respiratory 18 Rate Respiratory 16 Rate [Bilateral Throughout] Blood Pressure 126/75 O2 Sat by Pulse 100 99 Oximetry Effort: mildly labored Gastrointestinal: non-tender Psychiatric: mood appropriate CBC and BMP: 11/20/21 04:30 11/20/21 04:30 ABG, PT/INR, D-dimer: PT/INR, D-dimer D-Dimer 563.08 ng/mlDDU (0-234) H 11/18/21 23:29 Abnormal lab findings: Abnormal Labs 11/18/21 11/18/21 11/18/21 23:29 23:29 23:29 WBC MCV MCH 33 H [place] % (Auto) 13.3 H [place] # (Auto) 1.0 H Seg Neuts % (Manual) Lymphocytes % (Manual) Seg Neutrophils # Man Lymphocytes # (Manual) D-Dimer 563.08 H Sodium 135 L Carbon Dioxide 21 L Creatinine Glucose 118 H POC Glucose 11/19/21 11/19/21 11/19/21 08:12 11:40 15:17 WBC MCV MCH [place] % (Auto) [place] # (Auto) Seg Neuts % (Manual) Lymphocytes % (Manual) Seg Neutrophils # Man Lymphocytes # (Manual) D-Dimer Sodium Carbon Dioxide Creatinine Glucose POC Glucose 238 H 184 H 155 H 11/19/21 11/20/21 11/20/21 20:29 04:30 04:30 WBC 11.4 H MCV 98 H MCH [place] % (Auto) [place] # (Auto) Seg Neuts % (Manual) 91.0 H Lymphocytes % (Manual) 6.0 L Seg Neutrophils # Man 10.4 H Lymphocytes # (Manual) 0.7 L D-Dimer Sodium 136 L Carbon Dioxide Creatinine 0.5 L Glucose 193 H POC Glucose 199 H 11/20/21 11/20/21 07:35 11:17 WBC MCV MCH [place] % (Auto) [place] # (Auto) Seg Neuts % (Manual) Lymphocytes % (Manual) Seg Neutrophils # Man Lymphocytes # (Manual) D-Dimer Sodium Carbon Dioxide Creatinine Glucose POC Glucose 137 H 122 H
--- NOTE | 2021-11-21 10:12 | Electrocardiograph Report ---
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
== END 2021-11-20 14:56 | disposition home or self-care (01) | DRG 189 ==
LOC: ED 23:02 → IMCU 11-19 01:06 → CC1 11-19 01:37 → 4A 11-19 17:34
PROVIDERS: ADMIT Internal Medicine Geriatric Medicine; ATTEND Internal Medicine
PROC: 5A09357 Assistance with Respiratory Ventilation, Less than 24 Consecutive Hours, Continuous Positive Airway Pressure (ICD-10-PCS; principal; 2021-11-18)
DX: J96.01 Acute respiratory failure with hypoxia (principal); J45.52 Severe persistent asthma with status asthmaticus; K21.9 Gastro-esophageal reflux disease without esophagitis; F03.90 Unspecified dementia, unspecified severity, without behavioral disturbance, psychotic disturbance, mood disturbance, and anxiety; R07.89 Other chest pain; E11.40 Type 2 diabetes mellitus with diabetic neuropathy, unspecified; E11.65 Type 2 diabetes mellitus with hyperglycemia; F32.A Depression, unspecified; J44.9 Chronic obstructive pulmonary disease, unspecified; M06.9 Rheumatoid arthritis, unspecified; Z72.89 Other problems related to lifestyle; I48.91 Unspecified atrial fibrillation; Z91.19 Patient's noncompliance with other medical treatment and regimen; Z86.718 Personal history of other venous thrombosis and embolism; Z86.711 Personal history of pulmonary embolism
CPT/HCPCS: 36415; 71045; 71275; 80048; 80053; 82962; 83036; 84484; 85007; 85025; 85379; 93005; 94640; 94644; 94660; 94760; G0378; Q9967; J1644; J1815; J2270; J2920; J3475